=== PATIENT | female | born 1975 | race Asian ===

== ENCOUNTER 2017-04-06 21:11 | Emergency (ER) | payer MEDICAID, OTHER ==
[2017-04-06 22:20] VITALS: BP 118/71
[2017-04-06 22:56] LABS: ABSOLUTE EOSINOPHILS # (AUTO) 0.1 10^3/uL (0.0-0.6); ABSOLUTE LYMPHOCYTES (AUTO) 1.4 10^3/uL (0.5-4.7); ABSOLUTE MONOCYTES (AUTO) 0.6 10^3/uL (0.1-1.4); ABSOLUTE NEUT (AUTO) 7.1 10^3/uL (1.7-8.2); BASOPHILS % (AUTO) 0.4 % (0-2); EOSINOPHILS % (AUTO) 0.7 % (0-6); HEMATOCRIT 28.8 % (36.0-47.0); HEMOGLOBIN 8.6 g/dL (12.0-15.5); LYMPHOCYTES % (AUTO) 15.2 % (13-45); MEAN CORPUSCULAR HEMOGLOBIN 19.2 pg (27.0-33.4); MEAN CORPUSCULAR HGB CONC 29.9 g/dL (32.0-36.0); MONOCYTES % (AUTO) 6.8 % (3-13); PLATELET COUNT 265 10^3/uL (150-450); RED BLOOD COUNT 4.49 10^6/uL (3.72-5.28); RED CELL DISTRIBUTION WIDTH 19.9 % (11.5-14.0); SEGMENTED NEUTROPHILS % (AUTO) 76.9 % (42-78); TOTAL CELLS COUNTED % (AUTO) 100 %; WHITE BLOOD COUNT 9.2 10^3/uL (4.0-10.5)
[2017-04-06 23:07] LABS: APPEARANCE,URINE SLIGHTLY-CLOUDY; BILIRUBIN,URINE NEGATIVE (NEGATIVE); COLOR,URINE YELLOW; GLUCOSE, URINE NEGATIVE (NEGATIVE); KETONES,URINE NEGATIVE (NEGATIVE); LEUKOCYTE ESTERASE,URINE SMALL (NEGATIVE); NITRITE,URINE NEGATIVE (NEGATIVE); PROTEIN,URINE 30 mg/dL (NEGATIVE); URINE SPECIFIC GRAVITY 1.025
[2017-04-06 23:25] LABS: ALANINE AMINOTRANSFERASE 21 U/L (9-52); ALBUMIN 4.6 g/dL (3.5-5.0); ALKALINE PHOSPHATASE 43 U/L (38-126); ANION GAP 12 (5-19); ASPARTATE AMINO TRANSFERASE 16 U/L (14-36); BILIRUBIN,DIRECT 0.1 mg/dL (0.0-0.4); BILIRUBIN,TOTAL 0.1 mg/dL (0.2-1.3); BLOOD UREA NITROGEN 17 mg/dL (7-20); CALCIUM 9.6 mg/dL (8.4-10.2); CARBON DIOXIDE 25 mmol/L (22-30); CHLORIDE 104 mmol/L (98-107); GLUCOSE 94 mg/dL (75-110); POTASSIUM 3.5 mmol/L (3.6-5.0); SODIUM 141.3 mmol/L (137-145); TOTAL PROTEIN 7.6 g/dL (6.3-8.2)
[2017-04-06 23:29] LABS: ANISOCYTOSIS 2+; HYPOCHROMASIA 3+; POIKILOCYTOSIS 1+; POLYCHROMASIA SLIGHT
[2017-04-06 23:30] LABS: OVALOCYTES SLIGHT; PLATELET COMMENT ADEQUATE
[2017-04-06 23:31] LABS: BURR CELLS SLIGHT
[2017-04-06 23:33] LABS: MEAN CORPUSCULAR VOLUME 64 fl (80-97)
[2017-04-06] MEDS ORDERED: FERROUS SULFATE 325 MG TABLET PO ONE (23:51)
[2017-04-06] MEDS ORDERED: DOCUSATE SODIUM 100 MG/10 ML UDC PO ONE (23:51)
[2017-04-06] MEDS ORDERED: NORMAL SALINE 1000 ML 1,000 ML IV ONE (23:54)
--- NOTE | 2017-04-07 01:15 | ER Document Report ---
ED General - General Chief Complaint: Vag Bleeding, +preg <12wks Stated Complaint: VAGINAL BLEEDING Time Seen by Provider: 04/07/17 01:03 COUNTRY TRAVELED TO/FROM: [facility] Notes: Patient is a 41-year-old female with 2 previous abortions who presents the ED complaining of being approximately 8 weeks and having vaginal bleeding. Patient states that she started spotting on Sunday and started bleeding today while she was at work. Patient states that she is currently gone through 2 pads. Patient states that she has been anemic with each , but does not know what her baseline is. Patient states that she does have some mild cramping, but otherwise has no other concerns or complaints. Patient denies any recent illness. She denies any drug allergies, smoking, or IV drug use. Denies any headache, fever, neck pain,URI, sore throat , chest pain, palpitations, syncope, cough, shortness of breath, wheeze, dyspnea , nausea/vomiting/diarrhea, urinary retention, dysuria, hematuria, vaginal odor , loss of control of bowel or bladder, numbness/tingling, saddle anesthesia, muscle paralysis/weakness, or rash. - Related Data Allergies/Adverse Reactions: No Known Allergies Allergy (Unverified 04/06/17 21:12) Past Medical History - Social History Smoking Status: Never Smoker Family History: Reviewed & Not Pertinent Review of Systems - Review of Systems Notes: REVIEW OF SYSTEMS: CONSTITUTIONAL : Denies fever, chills, or sweats. Denies recent illness. EENT: Denies eye, ear, throat, or mouth pain or symptoms. Denies nasal or sinus congestion or discharge. Denies throat, tongue, or mouth swelling or difficulty swallowing. CARDIOVASCULAR: Denies chest pain. Denies palpitations or racing or irregular heart beat. Denies ankle edema. RESPIRATORY: Denies cough, cold, or chest congestion. Denies shortness of breath, difficulty breathing, or wheezing. GASTROINTESTINAL: see hpi. Denies nausea, vomiting, or diarrhea. Denies blood in vomitus, stools, or per rectum. Denies black, tarry stools. Denies constipation. GENITOURINARY: Denies difficulty urinating, painful urination, burning, frequency, blood in urine, or discharge. FEMALE GENITOURINARY: see hpi MUSCULOSKELETAL: Denies back or neck pain or stiffness. Denies joint pain or swelling. SKIN: Denies rash, lesions or sores. NEUROLOGICAL: Denies confusion or altered mental status. Denies passing out or loss of consciousness. Denies dizziness or lightheadedness. Denies headache. Denies weakness or paralysis or loss of use of either side. Denies problems with gait or speech. Denies sensory loss, numbness, or tingling. Denies seizures. ALL OTHER SYSTEMS REVIEWED AND NEGATIVE. Dictation was performed using [employer] voice recognition software Physical Exam - Vital signs Vitals: Temp Pulse Resp BP Pulse Ox 98.6 F 58 L 16 118/71 99 04/06/17 22:19 04/06/17 22:19 04/06/17 22:19 04/06/17 22:19 04/06/17 22:19 Notes: PHYSICAL EXAMINATION: GENERAL: Well-appearing, well-nourished and in no acute distress. LUNGS: Breath sounds clear to auscultation bilaterally and equal. No wheezes rales or rhonchi. HEART: Regular rate and rhythm without murmurs, rubs, gallops. ABDOMEN: Soft, nontender, nondistended abdomen. No guarding, no rebound. No masses appreciated. Normal bowel sounds present. No CVA tenderness bilaterally. : deferred Extremities: No cyanosis, clubbing, or edema b/l. Peripheral pulses 2+. Capillary refill less than 3 seconds. NEUROLOGICAL: Cranial nerves grossly intact. Normal speech, normal gait. Normal sensory, motor exams PSYCH: Normal mood, normal affect. SKIN: Warm, Dry, normal turgor, no rashes or lesions noted. Course - Re-evaluation Re-evalutation: 04/07/17 03:05 Patient is an afebrile, well-hydrated, 41-year-old female who presents to the ED with anemia, suspect iron deficient, as well as an early . Vitals are stable. PE is otherwise unremarkable. See CBC results 2. CMP and urinalysis are unremarkable for any acute pathology. HCG was just under 1200. Transvaginal ultrasound did not show any gestational sac or intrauterine at this time. Differential includes miscarriage, ectopic, or early . At this time, I have a low suspicion/risk for acute appendicitis, bowel obstruction, acute cholecystitis, acute cholangitis, perforated diverticulitis, incarcerated hernia, pancreatitis, perforated ulcer, peritonitis , sepsis, pelvic inflammatory disease, ectopic , tubo-ovarian abscess, ovarian torsion, or other systemic emergent condition at this time. Patient is aware that her condition can change from initial presentation and she needs to monitor symptoms closely and seek medical attention if any acute changes. I will send her home with a Rx for iron and colace. Conservative measures otherwise for symptoms. Come back to the ED for repeat HCG, CBC, and possible TVUS in 48 hours. Recheck with OBGYN in 1 week. Recheck with your PCM in 3-5 days. Return to the ED sooner with any worsening/concerning symptoms otherwise as reviewed in discharge. Patient is in agreement. Reviewed case with Dr. Allan. - Vital Signs Vital signs: Temp Pulse Resp BP Pulse Ox 98.6 F 58 L 16 118/71 99 04/06/17 22:19 04/06/17 22:19 04/06/17 22:19 04/06/17 22:19 04/06/17 22:19 - Laboratory Result Diagrams: 04/07/17 02:00 04/06/17 22:00 Laboratory results interpreted by me: 04/06/17 04/06/17 04/06/17 22:00 22:00 22:00 Hgb 8.6 L Hct 28.8 L MCV 64 L MCH 19.2 L MCHC 29.9 L RDW 19.9 H Potassium 3.5 L Total Bilirubin 0.1 L Beta HCG, Quant 1155.20 H Urine Protein 30 H Urine Blood LARGE H Urine Urobilinogen 4.0 H Ur Leukocyte Esterase SMALL H 04/07/17 02:00 Hgb 8.1 L Hct 27.2 L MCV 64 L MCH 19.0 L MCHC 29.8 L RDW 20.1 H Potassium Total Bilirubin Beta HCG, Quant Urine Protein Urine Blood Urine Urobilinogen Ur Leukocyte Esterase Discharge - Discharge Clinical Impression: Vaginal bleeding affecting early Iron deficiency anemia Qualifiers: Iron deficiency anemia type: unspecified iron deficiency Qualified Code(s): D50.9 - Iron deficiency anemia, unspecified Condition: Stable Disposition: HOME, SELF-CARE Instructions: Anemia, Iron Deficiency ([facility]), Bleeding During Early ( [facility]) Additional Instructions: Maintain adequate fluid intake and food intake Monitor symptoms closely Come back to the ED in 48 hours for a recheck of your labs and possibly another ultrasound-- return to the ED earlier with any worsening/concerning symptoms otherwise* You need to take the iron and colace prescribed as you are anemic. Tylenol if needed Recheck with your PCM/OBGYN in 1 week otherwise. Return to the ED with any worsening symptoms and/or development of fever, headache, chest pain, palpitations, syncope, shortness of breath, trouble breathing, abdominal pain, n/v/d, blood in stool/urine, loss of control of bowel /bladder, urinary retention, muscle weakness/paralysis, saddle anesthesia, numbness/tingling, worsening vaginal bleeding/cramping, or other worsening symptoms that are concerning to you. Prescriptions: Docusate Sodium 100 mg PO DAILY #30 capsule Ferrous Sulfate 325 mg PO DAILY #30 tablet Referrals: [facility] [Provider Group] - Follow up in 1 week
[2017-04-07] MEDS ORDERED: DOCUSATE SODIUM 100 MG CAPSULE PO ONE (02:11)
--- NOTE | 2017-04-07 02:13 | RADIOLOGY REPORT (SQ) ---
EXAM DESCRIPTION: U/S OB TRANSVAG W/DOPPLER CLINICAL HISTORY: 41 years Female, , vaginal bleeding COMPARISON: None. TECHNIQUE: Complete transvaginal first trimester obstetrical ultrasound. FINDINGS: The uterus measures 9.5 x 5.7 x 7.1 cm. Endometrial thickness of 0.3 cm. No myometrial abnormalities. No gestational sac is identified. The left ovary is not visualized. The right ovary measures 4.0 x 2.2 x 2.8 cm. Limited color and spectral Doppler images demonstrate flow within the right ovary. Moderate amount of free fluid noted in the cul-de-sac with internal echoes. No other abnormality identified in the adnexa to suggest ectopic . IMPRESSION: 1. No gestational sac identified within the uterus. There is also heterogeneous free pelvic fluid. Differential considerations include early normal , ectopic , or miscarriage. No other sonographic findings other than free fluid are identified to suggest ectopic . Close continued clinical, laboratory, and sonographic follow-up recommended.
[2017-04-07 02:16] LABS: ABSOLUTE BASOPHILS # (AUTO) 0.1 10^3/uL (0.0-0.2); ABSOLUTE EOSINOPHILS # (AUTO) 0.1 10^3/uL (0.0-0.6); ABSOLUTE LYMPHOCYTES (AUTO) 1.5 10^3/uL (0.5-4.7); ABSOLUTE MONOCYTES (AUTO) 0.5 10^3/uL (0.1-1.4); ABSOLUTE NEUT (AUTO) 5.4 10^3/uL (1.7-8.2); BASOPHILS % (AUTO) 0.8 % (0-2); EOSINOPHILS % (AUTO) 1.7 % (0-6); HEMATOCRIT 27.2 % (36.0-47.0); HEMOGLOBIN 8.1 g/dL (12.0-15.5); LYMPHOCYTES % (AUTO) 19.6 % (13-45); MEAN CORPUSCULAR HGB CONC 29.8 g/dL (32.0-36.0); MEAN CORPUSCULAR VOLUME 64 fl (80-97); MONOCYTES % (AUTO) 7.2 % (3-13); PLATELET COUNT 242 10^3/uL (150-450); RED BLOOD COUNT 4.26 10^6/uL (3.72-5.28); RED CELL DISTRIBUTION WIDTH 20.1 % (11.5-14.0); SEGMENTED NEUTROPHILS % (AUTO) 70.7 % (42-78); TOTAL CELLS COUNTED % (AUTO) 100 %; WHITE BLOOD COUNT 7.6 10^3/uL (4.0-10.5)
[2017-04-07 02:43] LABS: ANISOCYTOSIS 2+; HYPOCHROMASIA 3+; POIKILOCYTOSIS 1+; POLYCHROMASIA SLIGHT
[2017-04-07 02:45] LABS: OVALOCYTES SLIGHT; PLATELET COMMENT ADEQUATE
== END 2017-04-07 03:50 | disposition home or self-care (01) ==
LOC: ER 21:11
DX: O46.91 Antepartum hemorrhage, unspecified, first trimester (principal); D50.9 Iron deficiency anemia, unspecified; Z3A.08 8 weeks gestation of pregnancy
CPT/HCPCS: 99284; 96360; 86900; 86901; 36415; 86850; 84702; 85025; 80053; 81001; 76817; 93976; J7030

== ENCOUNTER 2018-04-17 13:19 | Outpatient (CLI) | payer MEDICAID ==
[2018-04-17 14:02] LABS: APPEARANCE,URINE SLIGHTLY-CLOUDY; BILIRUBIN,URINE NEGATIVE (NEGATIVE); COLOR,URINE YELLOW; GLUCOSE, URINE NEGATIVE (NEGATIVE); KETONES,URINE 20 mg/dL (NEGATIVE); LEUKOCYTE ESTERASE,URINE TRACE (NEGATIVE); NITRITE,URINE NEGATIVE (NEGATIVE); PROTEIN,URINE 30 mg/dL (NEGATIVE); URINE SPECIFIC GRAVITY 1.018; UROBILINOGEN,URINE NEGATIVE mg/dL (<2.0)
[2018-04-17 14:25] LABS: URINE AMPHETAMINES SCREEN NEGATIVE; URINE BARBITURATES SCREEN NEGATIVE; URINE BENZODIAZEPINES SCREEN NEGATIVE; URINE COCAINE SCREEN NEGATIVE; URINE MARIJUANA (THC) SCREEN NEGATIVE; URINE METHADONE SCREEN NEGATIVE; URINE PHENCYCLIDINE SCREEN NEGATIVE
--- NOTE | 2018-04-17 14:39 | Non Stress Test Report ---
Non Stress Test Datetime Report Generated by CPN: 04/17/2018 14:39 DEMOGRAPHIC EGA NST: 39.3 INDICATION Indication for Study: Ordered by Provider URINE RESULTS Urine Blood - NST: Positive MONITORING Monitor Explained: Monitor Explained; Test Explained; Patient Verbalized Understanding Time on Monitor: 04/17/2018 13:37 Time off Monitor: 04/17/2018 14:03 NST Duration: 26 NST INTERVENTIONS NST Interventions: None Physician Notified NST: A. Alejo, CNM BABY A: [id number] BABY A Movement : Present Contraction Frequency : irregular FHR Baseline : 135 Accelerations : 15X15 Decelerations : None Variability : Moderate 6-25bpm NST Review: Meets Criteria for Reactive NST NST Review and Verified By : RICHARD Jackson Results: Reactive NST REPORT Report Trigger: Send Report
== END 2018-04-17 14:39 | disposition home or self-care (01) ==
LOC: LC 13:19
PROVIDERS: ATTEND Obstetrics & Gynecology
PROC: 4A1HXCZ Monitoring of Products of Conception, Cardiac Rate, External Approach (ICD-10-PCS; principal; 2018-04-17)
DX: O47.1 False labor at or after 37 completed weeks of gestation (principal); O09.523 Supervision of elderly multigravida, third trimester; Z3A.39 39 weeks gestation of pregnancy
CPT/HCPCS: 59025; 80307; 81005

== ENCOUNTER 2018-04-18 03:01 | Inpatient (IN) | payer MEDICAID ==
[2018-04-18 03:28] LABS: APPEARANCE,URINE SLIGHTLY-CLOUDY; BILIRUBIN,URINE NEGATIVE (NEGATIVE); COLOR,URINE YELLOW; GLUCOSE, URINE NEGATIVE (NEGATIVE); KETONES,URINE 80 mg/dL (NEGATIVE); LEUKOCYTE ESTERASE,URINE TRACE (NEGATIVE); NITRITE,URINE NEGATIVE (NEGATIVE); PROTEIN,URINE 100 mg/dL (NEGATIVE); URINE SPECIFIC GRAVITY 1.025; UROBILINOGEN,URINE NEGATIVE mg/dL (<2.0)
[2018-04-18 03:43] LABS: URINE AMPHETAMINES SCREEN NEGATIVE; URINE BARBITURATES SCREEN NEGATIVE; URINE BENZODIAZEPINES SCREEN NEGATIVE; URINE COCAINE SCREEN NEGATIVE; URINE MARIJUANA (THC) SCREEN NEGATIVE; URINE METHADONE SCREEN NEGATIVE; URINE PHENCYCLIDINE SCREEN NEGATIVE
[2018-04-18] MEDS ORDERED: MAG HYDROX/AL HYDROX/SIMETH SUSP 30 ML UDCUP ONE (03:44)
--- NOTE | 2018-04-18 04:23 | Non Stress Test Report ---
Non Stress Test Datetime Report Generated by CPN: 04/18/2018 04:23 DEMOGRAPHIC Test Number: 2 EGA NST: 39.4 INDICATION Indication for Study: Ordered by Provider URINE RESULTS Urine Protein, NST: Positive Urine Ketones - NST: Positive Urine Glucose - NST: Negative Urine Blood - NST: Positive MONITORING Monitor Explained: Monitor Explained; Test Explained; Patient Verbalized Understanding Time on Monitor: 04/18/2018 03:20 Time off Monitor: 04/18/2018 03:40 NST Duration: 20 NST INTERVENTIONS NST Interventions: PO Hydration; Reposition Patient Physician Notified NST: Dr. Fierro BABY A: [id number] BABY A Movement : Present Movement : Present Contraction Frequency : 4-6 FHR Baseline : 135 Accelerations : 15X15 Decelerations : None Variability : Moderate 6-25bpm NST Review: Meets Criteria for Reactive NST NST Review and Verified By : Manasa Riddle RN NST Results: Reactive NST REPORT Report Trigger: Send Report
[2018-04-18] MEDS ORDERED: RINGERS SOLUTION,LACTATED 1,000 ML IV PRN (04:56)
[2018-04-18] MEDS ORDERED: OXYTOCIN 10 UNIT/ML VIAL ONE (04:58)
[2018-04-18] MEDS ORDERED: LIDOCAINE 1% INJ-PF (10 MG/ML) 30 ML SDV ONE (04:58)
[2018-04-18] MEDS ORDERED: OXYTOCIN/NORMAL SALINE 20 UNIT/1,000 ML RTUINJ ONE (04:58)
[2018-04-18] MEDS ORDERED: MISOPROSTOL 0.2 MG TABLET ONE (04:58)
[2018-04-18 05:29] LABS: ABSOLUTE LYMPHOCYTES (AUTO) 0.7 10^3/uL (0.5-4.7); ABSOLUTE MONOCYTES (AUTO) 0.6 10^3/uL (0.1-1.4); ABSOLUTE NEUT (AUTO) 11.2 10^3/uL (1.7-8.2); BASOPHILS % (AUTO) 0.2 % (0-2); EOSINOPHILS % (AUTO) 0.1 % (0-6); HEMATOCRIT 36.5 % (36.0-47.0); HEMOGLOBIN 12.7 g/dL (12.0-15.5); LYMPHOCYTES % (AUTO) 5.4 % (13-45); MEAN CORPUSCULAR HEMOGLOBIN 31.9 pg (27.0-33.4); MEAN CORPUSCULAR HGB CONC 34.7 g/dL (32.0-36.0); MEAN CORPUSCULAR VOLUME 92 fl (80-97); MONOCYTES % (AUTO) 4.5 % (3-13); PLATELET COUNT 160 10^3/uL (150-450); RED BLOOD COUNT 3.97 10^6/uL (3.72-5.28); RED CELL DISTRIBUTION WIDTH 13.4 % (11.5-14.0); SEGMENTED NEUTROPHILS % (AUTO) 89.8 % (42-78); TOTAL CELLS COUNTED % (AUTO) 100 %; WHITE BLOOD COUNT 12.5 10^3/uL (4.0-10.5)
--- NOTE | 2018-04-18 05:53 | Admission Physical ---
Datetime Report Generated by CPN: 04/18/2018 05:53 CURRENT ADMISSION Chief Complaint: Uterine Contractions Indication for Induction: Not Applicable Admit Impression : Term, Intrauterine ; Active Labor Admit Plan: Admit to Unit; Initiate Labor Protocol ALLERGIES Medication Allergies: Yes Medication Allergies: No Known Allergies (04/18/2018) Latex: No Latex Allergies Food Allergies: None Environmental Allergies: Pollen OBSTETRICAL HISTORY EDC: 04/21/2018 00:00 : 8 Para: 4 Term: 4 : 0 SAB: 1 IAB: 2 Ectopic: 0 Livin Cesareans: 0 VBACs: 0 Multiple Births: 0 Gestational Diabetes: No Rh Sensitization: No Incompetent Cervix: No MONSTER: No Infertility: No ART Treatment: No Uterine Anomaly: No IUGR: No Hx Previous C/S: No Macrosomia: No Hx Loss/Stillborn: No PIH: No Hx : No Placenta Previa/Abruption: No Depression/PP Depression: No PTL/PROM: No Post Hemorrhage: No Current Procedures: Ultrasound; NST Obstetrical History Comments: 1994, G2- 1997, G32005, EAB G42005, G52006, EAB G62006, G2017, SAB G8- Current SEE RECORDS Alcohol: No Marijuana : No Cocaine: No Other Illicit Drugs: No Cigarettes: Former Smoker. 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 Surgery: No Heart Disease: No Hosp/Surgery: Yes Autoimmune Disorder: No Anesthetic Complications: No Kidney Disease: No Abnormal Pap Smear: No Neuro/Epilepsy: No Psychiatric Disorders: No Other Medical Diseases: No Hepatitis/Liver Disease: No Significant Family History: No Varicosities/Phlebitis: No Trauma/Violence : No Thyroid Dysfunction: No Medical History Comments: Hospitalization for childbirth INFECTIOUS HISTORY Gonorrhea: No Genital Herpes: No Chlamydia: No Tuberculosis: No Syphilis: No Hepatitis: No HIV/AIDS Exposure: No Rash or Viral Illness: No HPV: No PHYSICAL EXAM General: Normal HEENT: Normal Neurologic: Normal Thyroid: Normal Heart: Normal Lungs: Normal Breast: Deferred Back: Normal Abdomen: Normal Genitourinary Exam: Normal Extremities: Normal DTRs: Normal Pelvic Type: Adequate Vital Signs: Reviewed VAGINAL EXAM Dilatation: 6 Effacement: 90 Station: -2 MEMBRANES Pooling: Negative Membranes: Intact FETUS A EGA: 39.4 Monitoring: External US FHR- Baseline: 120 Variability: Absent - Undetectable FHR Category: Category I Presentation: Vertex Admit Comment: Admit for delivery PLANS FOR LABOR AND DELIVERY Labor and Delivery: None Pain Management: Natural Feeding Preference: Breast Benefit of Breast Feed Discussed: Yes Circumcision: Yes INFORMED CONSENT Signature: with User ID: [email or web address]
[2018-04-18] MEDS ORDERED: FENTANYL/BUPIVACAINE/NS/PF 300 MCG/150 ML RTUINJ EPI ONE (06:00)
[2018-04-18] MEDS ORDERED: EPHEDRINE SULFATE INJ 50 MG/1 ML AMPULE ONE (06:00)
[2018-04-18] MEDS ORDERED: BUPIVACAINE HCL 0.25 % INJ/PF (2.5 MG/1 ML) 30 ML VIAL ONE (06:00)
[2018-04-18] MEDS ORDERED: OXYTOCIN/NORMAL SALINE 20 UNIT/1,000 ML RTUINJ IV PRN ×2 (08:24→09:50)
[2018-04-18] MEDS ORDERED: ZOLPIDEM TARTRATE 5 MG TABLET PO PRN (09:50)
[2018-04-18] MEDS ORDERED: BENZOCAINE/MENTHOL AEROSOL SPRAY 56 ML TOP PRN (09:50)
[2018-04-18] MEDS ORDERED: MEASLES,MUMPS&RUBELLA VACC/PF 0.5 ML VIAL SUBCUT PRN ×2 (09:50→14:00)
[2018-04-18] MEDS ORDERED: DIPH/PERTUSS(ACELL)/TETANUS VAC/PF 0.5 ML SYR (>=10YO) IM PRN ×2 (09:50→14:00)
[2018-04-18] MEDS ORDERED: DIBUCAINE 1% OINTMENT 28 GM TP PRN (09:50)
[2018-04-18] MEDS ORDERED: ONDANSETRON HCL INJ/PF 4 MG/2 ML SDV IV PRN ×2 (11:27→14:00)
[2018-04-18] MEDS ORDERED: ONDANSETRON HCL INJ/PF 4 MG/2 ML SDV ONE (11:29)
--- NOTE | 2018-04-18 11:58 | Delivery Summary ---
Del Sum A-C Datetime Report Generated by CPN: 04/18/2018 11:58 DELIVERY PERSONNEL DELIVERY PERSONNEL: [id number] Delivery Doctor:: Anita Muñoz CNM Labor and Delivery Nurse:: Danika Shanks RNwood boatbuilder Nurse:: Vianney Carson RN Nursery Nurse:: Mavis Ferris RN Html Developer/SOLDER LEVELER PRINTED CIRCUIT BOARDS: Ivonne Navas, AIRLINE CAPTAIN MATERNAL INFORMATION Delivery Anesthesia: Epidural Medications After Delivery: Pitocin Bolus-Please Comment Meds After Delivery Comment: Pitocin 20 units in 1 L NS bolusing per order Maternal Complications: None Provider Comments: of viable male . ADRIÁN, placed on pts abdoman, crying and in stable condition. Cord clamped and cut after 45 seconds due to increased vaginal bleeding indicating placental separation. Cord blood collected. PLacenta S/C/I, ff w/ decreased lochia. IV Pitocin infusing. 2nd degree laceration repaired. Ice pack to perineum. Minimal PP bleeding. Mother and baby in stable condition. Dr Garcias is the attending MD LABOR SUMMARY EDC: 04/21/2018 00:00 No. Babies in Womb: 1 Attempted: No Labor Anesthesia: Epidural LABOR INFORMATION Reason for Induction: Not Applicable Onset of Labor: 04/18/2018 05:00 Complete Dilatation: 04/18/2018 09:11 Oxytocin: Augmentation Group B Beta Strep: Negative (Annotations: Data stored by CPN on behalf of user) Antibiotics # of Doses: 0 Antibiotics Time of Last Dose: n/a Name of Antibiotic Given: n/a Steroids Given: None Reason Steroids Not Administered: Not Applicable MEMBRANES Membranes Rupture Method: Artificial Rupture of Membranes: 04/18/2018 07:13 Length of Rupture (hr): 2.25 Amniotic Fluid Color: Clear Amniotic Fluid Amount: Small Amniotic Fluid Odor: Normal STAGES OF LABOR Stage 1 hr: 4 Stage 1 min: 11 Stage 2 hr: 0 Stage 2 min: 17 Stage 3 hr: 0 Stage 3 min: 3 Total Time in Labor hr: 4 Total Time in Labor min: 31 VAGINAL DELIVERY Episiotomy: None Laceration #1: Perineal Laceration Extension #1: Second Degree Laceration Repair: Yes Laceration Repair Note: Small second degree laceration repaired w/ 3.[address] needle. Pt tolerated procedure well Sponge Count Correct: Yes Sharps Count Correct: Yes CSECTION DELIVERY Primary Indication: N/A Secondary Indication: N/A CSection Incidence: N/A Labor: N/A Elective: N/A CSection Incision: N/A BABY A INFORMATION Infant Delivery Date/Time: 04/18/2018 09:28 Method of Delivery: Vaginal Born in Route : No : N/A Forceps: N/A Vacuum Extraction: N/A Shoulder Dystocia : No PRESENTATION/POSITION BABY A Presentation: Cephalic Cephalic Presentation: Vertex Vertex Position: Left Occipital Anterior Breech Presentation: Single Footling PLACENTA INFORMATION BABY A Placenta Delivery Time : 04/18/2018 09:31 Placenta Method of Delivery: Spontaneous Placenta Status: Delivered SCORES BABY A Heart Rate 1 min: >100 bpm Resp Effort 1 min: Slow, Irregular Reflex Irritability 1 min: Cough or Sneeze or Pulls Away Muscle Tone 1 min: Active Motion Color 1 min: Blue/Pale Resuscitation Effort 1 min: Tactile Stimulation SCORE 1 MIN: 7 Heart Rate 5 min: >100 bpm Resp Effort 5 min: Slow, Irregular Reflex Irritability 5 min: Cough or Sneeze or Pulls Away Muscle Tone 5 min: Active Motion Color 5 min: Body [place], Extremities Blue Resuscitation Effort 5 min: Tactile Stimulation; Oxygen SCORE 5 MIN: 8 Heart Rate 10 min: >100 bpm Resp Effort 10 min: Good Cry Reflex Irritability 10 min: Cough or Sneeze or Pulls Away Muscle Tone 10 min: Active Motion Color 10 min: Body [place], Extremities Blue SCORE 10 MIN: 9 INFANT INFORMATION BABY A Gestational Age at Delivery: 39.4 Gestational Status: Full Term- 39- 40.6 Weeks Infant Outcome : Liveborn Condition : Stable Infant Sex: Male IDENTIFICATION BABY A Verification Date/Time: 04/18/2018 09:43 ID Band Number: [id number] Mother's Name Verified: Yes Infant RN Verifying : C. Rimma RN Aidan Carson RN WEIGHT/LENGTH BABY A Infant Birthweight (gm): 3925 Infant Weight (lb): 8 Infant Weight (oz): 10 Infant Length (in): 22.00 Infant Length (cm): 55.88 CORD INFORMATION BABY A No. Cord Vessels: 3 Nuchal Cord : N/A Cord Blood Taken: Yes-For Storage (Mom's Blood type +) Infant Suction: Mouth ASSESSMENT BABY A Infant Complications: None Skin to Skin: Yes Skin to Skin Time (min): 60 Care By: Josy RN Transferred To: Remains with Mother BABY B INFORMATION : N/A SIGNATURES Assignment: Manjinder Garcias MD Signature: with User ID: Mariola : with User ID: [email or web address]
--- NOTE | 2018-04-18 12:23 | Warning Signs in Babies ---
VOD Warning Signs Datetime Report Generated by [facility]: 04/18/2018 12:23 VOD#608 -Warning Signs in Babies: Viewed with Parent(s)/Family (04/18/2018 12:22:Danika Shanks RN)
[2018-04-18] MEDS: IBUPROFEN 800 MG TABLET PO SCH ×2 (14:44→22:05)
[2018-04-18] MEDS: DOCUSATE SODIUM 100 MG CAPSULE PO SCH ×2 (17:28→17:29)
[2018-04-18] MEDS: FERROUS SULFATE 325 MG TABLET PO SCH ×2 (17:28→17:29)
[2018-04-18] MEDS: SENNOSIDES/DOCUSATE 8.6-50 MG 1 EACH TABLET PO SCH (17:29)
[2018-04-18] MEDS: ACETAMINOPHEN WITH CODEINE #3 TABLET PO PRN (17:29)
[2018-04-18] MEDS: PRENATAL VITAMIN W DHA CAPSULE PO SCH (17:29)
[2018-04-18] MEDS ORDERED: FAMOTIDINE 20 MG TABLET PO ONE (23:59)
[2018-04-19] MEDS: IBUPROFEN 800 MG TABLET PO SCH ×3 (06:06→21:39)
[2018-04-19 07:28] LABS: HEMATOCRIT 32.8 % (36.0-47.0); HEMOGLOBIN 11.4 g/dL (12.0-15.5); MEAN CORPUSCULAR HEMOGLOBIN 32.5 pg (27.0-33.4); MEAN CORPUSCULAR HGB CONC 34.8 g/dL (32.0-36.0); MEAN CORPUSCULAR VOLUME 93 fl (80-97); PLATELET COUNT 145 10^3/uL (150-450); RED BLOOD COUNT 3.52 10^6/uL (3.72-5.28); RED CELL DISTRIBUTION WIDTH 13.4 % (11.5-14.0)
[2018-04-19] MEDS: FERROUS SULFATE 325 MG TABLET PO SCH ×2 (09:47→18:30)
[2018-04-19] MEDS: PRENATAL VITAMIN W DHA CAPSULE PO SCH (09:47)
[2018-04-19] MEDS: DOCUSATE SODIUM 100 MG CAPSULE PO SCH ×2 (09:47→18:30)
[2018-04-19] MEDS: FAMOTIDINE 20 MG TABLET PO SCH ×2 (09:47→21:39)
[2018-04-19] MEDS: SENNOSIDES/DOCUSATE 8.6-50 MG 1 EACH TABLET PO SCH (09:47)
[2018-04-19] MEDS: ACETAMINOPHEN WITH CODEINE #3 TABLET PO PRN (09:50)
--- NOTE | 2018-04-19 11:11 | PDOC PROGRESS REPORT ---
Subjective-OB Progress Note for:: 04/19/18 Subjective: Pt doing well, no complaints. Reports light bleeding, reg diet and voiding without difficulty. Physical Exam (OB) Vital Signs: Temp Pulse Resp BP Pulse Ox 97.6 F 58 L 17 118/72 98 04/19/18 08:26 04/19/18 08:26 04/19/18 08:26 04/19/18 08:26 04/19/18 08:26 Intake & Output 04/18/18 04/19/18 04/20/18 06:59 06:59 06:59 Intake Total 1400 Balance 1400 Weight 81.1 kg - Abdomen Description: Soft, Round Hernia Present: No Fundal Description: Firm, Midline Fundal Height: u/u - u/2 Objective-Diagnostic Laboratory: 04/19/18 06:44 04/19/18 06:44 WBC 10.0 RBC 3.52 L Hgb 11.4 L Hct 32.8 L MCV 93 MCH 32.5 MCHC 34.8 RDW 13.4 Plt Count 145 L Assessment and Plan(PN) - Assessment and Plan (1) Vaginal delivery Is this a current diagnosis for this admission?: Yes - Time Spent with Patient Time with patient: Less than 15 minutes Medications reviewed and adjusted accordingly: Yes - Disposition Anticipated Discharge: Home Within: within 24 hours
[2018-04-20] MEDS: IBUPROFEN 800 MG TABLET PO SCH ×2 (05:19→17:23)
[2018-04-20] MEDS: ACETAMINOPHEN WITH CODEINE #3 TABLET PO PRN (08:09)
[2018-04-20 09:05] VITALS: BP 139/75
--- NOTE | 2018-04-20 11:48 | PDOC DISCHARGE SUMMARY ---
Final Diagnosis Discharge Date: 04/20/18 - Final Diagnosis (1) Vaginal delivery Is this a current diagnosis for this admission?: Yes Discharge Data - Discharge Medication Home Medications: Vit No.130/Iron/Folic [ Vitamins] 1 each PO DAILY 04/17/18 Reason(s) for Admission: Onset of Labor Procedures: NST Intrapartum Procedure(s): Spontaneous Vaginal Delivery Complication(s): Laceration-Perineal Laceration-Degree: 2nd - Diagnosis Test Laboratory: Temp Pulse Resp BP Pulse Ox 97.6 F 58 L 17 118/72 98 04/19/18 08:26 04/19/18 08:26 04/19/18 08:26 04/19/18 08:26 04/19/18 08:26 04/18/18 04/18/18 04/19/18 03:12 05:05 06:44 RBC 3.97 3.52 L Hgb 12.7 11.4 L Hct 36.5 32.8 L Urine Opiates Screen NEGATIVE - Discharge information/Instructions Discharge Activity: Balance Activity w/Rest, Pelvic Rest Discharge Diet: Regular Disposition: HOME, SELF-CARE Follow up with: [facility] in: 3, 4, 5, Weeks
[2018-04-20] MEDS: DOCUSATE SODIUM 100 MG CAPSULE PO SCH (12:18)
[2018-04-20] MEDS: FAMOTIDINE 20 MG TABLET PO SCH (12:18)
[2018-04-20] MEDS: PRENATAL VITAMIN W DHA CAPSULE PO SCH (12:18)
[2018-04-20] MEDS: SENNOSIDES/DOCUSATE 8.6-50 MG 1 EACH TABLET PO SCH (12:18)
[2018-04-20] MEDS: FERROUS SULFATE 325 MG TABLET PO SCH (12:18)
== END 2018-04-20 15:00 | disposition home or self-care (01) | DRG 807 ==
LOC: LC 03:01 → LR 05:00 → 2S 13:16
PROVIDERS: ADMIT Obstetrics & Gynecology; ATTEND Obstetrics & Gynecology
PROC: 10E0XZZ Delivery of Products of Conception, External Approach (ICD-10-PCS; principal; 2018-04-18)
PROC: 0KQM0ZZ Repair Perineum Muscle, Open Approach (ICD-10-PCS; 2018-04-18)
PROC: 10907ZC Drainage of Amniotic Fluid, Therapeutic from Products of Conception, Via Natural or Artificial Opening (ICD-10-PCS; 2018-04-18)
DX: O70.1 Second degree perineal laceration during delivery (principal); Z37.0 Single live birth; Z3A.39 39 weeks gestation of pregnancy
CPT/HCPCS: 36415; 80307; 81005; 85025; 85027; 86592; 86850; 86900; 86901; 94760; J2405; J2590; J3010; J3490